=== PATIENT | male | born 1945 | race Caucasian/White ===

== ENCOUNTER 2018-08-05 20:50 | Emergency (ER) | payer MEDICARE, BC ==
--- OUTSIDE RECORDS SUMMARY | 2018-08-05 21:25 | XMS REPORT | Continuity of Care Document ---
:1945 External Reference #:[id number] Author Name Dave Anaya M.D. Address [address] [facility] [address] [place] [address] Care Team Providers Name Role Phone HCP given Primary Care Physician Unavailable Payers Date Identification Numbers Payment Provider Subscriber Effective: 2017 Policy Number: [id number] [employer] Mason Betancourt PayID: [id number] [address] [place] [address] Effective: 2014 Policy Number: [id number] [employer]/Ppo/Hmo/Pos Mason Betancourt PayID: [id number] [address] [address] [place] [address] Advance Directives Description No Information Available Problems Active Problems Provider Date Essential hypertension Dave Anaya M.D. Onset: 01/08/2017 Pure hypercholesterolemia Dave Anaya M.D. Onset: 01/08/2017 Neuropathy due to type 2 diabetes mellitus Dave Anaya M.D. 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, as adjunct through spring 2017; unsure if will work beyond that) Tobacco Use Start: Unknown End: Patient is a former Unknown smoker Smoking Status Reviewed: 12/04/17 Patient is a former smoker Exercise 01/12/2016 Exercises regularly Type/Frequency Smoke Alarms Yes smoke alarm Allergies, Adverse Reactions, Alerts Description No Known Drug Allergies Medications Active Medications SIG Qnty Indications Ordering Date Provider Esomeprazole 1 capsule daily if K21.9 Unknown 07/26/2018 Magnesium needed for acid 20mg reflux Capsules Vitamin B12 take 1 sublingual Silcoff, 03/24/2017 1000mcg tablet daily Frandy Acosta Tablets ER Metoprolol Succinate 1/2 tablet by mouth 45tabs I10 Silcoff, 02/13/2017 ER every day Frandy Acosta 25mg Tablets ER 24HR Atorvastatin Calcium Take 1 Tablet By 90tabs E78.00 Héctor, 01/08/2017 Mouth Every Day To Frandy Acosta 40mg Tablets Lower Cholesterol And Reduce Risk Of Heart Disease Flomax take one capsule by Unknown 01/06/2017 Capsules mouth at bedtime Aspirin Children's 1 qam 90units R07.9 Maryanaco, 12/03/2016 Frandy Acosta 81mg Chewtabs Ibuprofen taking 2 tab to 4 Unknown 01/11/2016 200mg tab with a snack Tablets for your pain as needed History Medications Esomeprazole 1 every morning 60caps K21.9 Maryanaco, 03/25/2017 - Magnesium before eating, if Frandy Acosta 12/30/2017 20mg Capsules no relief in gerd DR maurer after several days, increase to 2 every morning Nitroglycerin apply 1 patch Unknown 03/24/2017 - 0.2mg/HR apply every 11/13/2017 Patches 24HR morning & remove every evening, sooner if causing Santana Atenolol 1 by mouth every 90tabs Kelsey Guerrero, 01/07/2017 - 25mg Tablets day P.A. 01/08/2017 Atenolol take 1/2 tablet by I10 Unknown 01/07/2017 - 50mg Tablets mouth every 02/13/2017 morning for high blood pressure Metoprolol Tartrate 1 tab po qd 90tabs Héctor, 12/26/2016 - Frandy Acosta 01/08/2017 25mg Tablets Omeprazole 1 tab 20 minutes 90caps R07.9 Maryanacosher, 12/03/2016 - 20mg prior to breakfast Frandy Acosta 03/25/[address] for control of gerd sxs Telmisartan take one tablet by 30tabs I10 Silcoff, 10/14/2016 - 40mg mouth once daily Frandy Acosta 11/24/2016 Tablets for high blood pressure Losartan Potassium take 1 tablet 90tabs I10 Silcosher, 08/23/2016 - daily for high Frandy Acosta 10/14/2016 100mg Tablets blood pressure Vitamin B-12 2 by mouth every D51.9 Silcoff, 07/26/2016 - 500mcg day (for vitamin Frandy Acosta 03/24/2017 Tablets B12 eficiency) Atorvastatin Calcium 1 by mouth every 90tabs E78.00 Silcoff, 07/23/2016 - day to lower Frandy Acosta 11/24/2016 40mg Tablets cholesterol and reduce risk of heart disease Losartan Potassium take one tablet by 90tabs I10 Silcosher, 07/23/2016 - 50mg mouth every Frandy Acosta 08/23/2016 Tablets morning for high blood pressure Sulfamethoxazole/Trim 1 by mouth twice a 30tabs Unknown 07/09/2016 - ethoprim DS day 07/24/2016 800-160mg Tablets Atenolol 1 tablet by mouth 45tabs I10 Silco, 01/11/2016 - 25mg Tablets every day for high Frandy Acosta 12/26/2016 blood pressure Tamsulosin HCL 1 by mouth every 90caps Unknown 01/11/2016 - 0.4mg day 11/24/2016 Capsules Aleve as needed Unknown 01/11/2016 - 220mg Tablets 10/16/2017 Finasteride 1 tab by mouth Unknown - 5mg Tablets every day for BPH 12/03/2017 Immunizations CPT Code Status Date Vaccine Lot # [id number] Given 01/06/2018 Influenza Vaccine Split Virus Preservative Free Im Use 71308 Given 08/11/2017 Shingrix Zoster (Shingles) Vaccine (HZV) [id number] Recomb,Subnit,Adjuvanted 23861 Given 01/08/2017 Td Immunization [id number] U-Flu Given 01/01/2017 Influenza,Unspecified 11464 Given 08/23/2016 Pneumococcal Immunization [id number] 00625 Given 10/05/2014 Prevnar 13 74862 Given 08/13/2013 Zostavax 98753 Given 10/15/2006 Adacel or Boostrix, TDaP Vital Signs Date Vital Result Comment 07/27/2018 9:11am BP Systolic 142 mmHg BP Diastolic 90 mmHg BP Systolic Recheck 164 mmHg R arm sitting BP Diastolic Recheck 86 mmHg R arm sitting Height 71.25 inches 5'11.25" Weight 201.00 lb BMI (Body Mass Index) 27.8 kg/m2 01/31/2018 9:00am BP Systolic 122 mmHg per pt (home reading) BP Diastolic 72 mmHg per pt (home reading) 01/30/2018 8:57am BP Systolic 162 mmHg BP Diastolic 80 mmHg Weight 197.00 lb 12/04/2017 2:06pm BP Systolic 154 mmHg BP Diastolic 82 mmHg BP Systolic Recheck 140 mmHg BP Diastolic Recheck 82 mmHg Heart Rate 81 /min Height 71 inches 5'11" Weight 195.00 lb BMI (Body Mass Index) 27.2 kg/m2 10/16/2017 8:30am BP Systolic 160 mmHg BP Diastolic 80 mmHg BP Systolic Recheck 160 mmHg BP recheck 148/90 BP Diastolic Recheck 80 mmHg BP recheck 148/90 Heart Rate 60 /min Height 71.5 inches 5'11.50" Weight 196.00 lb BMI (Body Mass Index) 27.0 kg/m2 08/11/2017 12:48pm BP Systolic 168 mmHg BP Diastolic 80 mmHg Height 70.75 inches 5'10.75" Weight 195.00 lb BMI (Body Mass Index) 27.4 kg/m2 03/25/2017 1:20pm BP Systolic 168 mmHg BP Diastolic 90 mmHg Heart Rate 71 /min O2 % BldC Oximetry 97 % Body Temperature 98.1 F Weight 190.00 lb 01/08/2017 8:28am BP Systolic 166 mmHg BP Diastolic 80 mmHg Height 71.5 inches 5'11.50" Weight 194.00 lb BMI (Body Mass Index) 26.7 kg/m2 12/03/2016 8:47am BP Systolic 152 mmHg BP Diastolic 84 mmHg BP Systolic Recheck 140 mmHg BP Diastolic Recheck 70 mmHg Heart Rate 74 /min O2 % BldC Oximetry 97 % 11/25/2016 9:20am BP Systolic 154 mmHg BP Diastolic 76 mmHg BP Systolic Recheck 140 mmHg Pulse: 75- Left arm standing BP Diastolic Recheck 78 mmHg Pulse: 75- Left arm standing Weight 197.00 lb BP Systolic Sitting Left Arm 146 mmHg Pulse: 74 BP Diastolic Sitting Left Arm 82 mmHg Pulse: 74 BP Systolic Lying Down Resting Right Arm 132 mmHg Pulse: 65 BP Diastolic Lying Down Resting Right Arm 80 mmHg Pulse: 65 09/25/2016 8:34am BP Systolic 134 mmHg BP Diastolic 64 mmHg BP Systolic Recheck 130 mmHg R arm sitting BP Diastolic Recheck 72 mmHg R arm sitting Heart Rate 60 /min reg Weight 207.00 lb 08/23/2016 9:58am BP Systolic 158 mmHg BP Diastolic 76 mmHg BP Systolic Recheck 174 mmHg ours; 172/88 his BP Diastolic Recheck 80 mmHg ours; 172/88 his Heart Rate 64 /min reg Weight 206.00 lb 07/23/2016 8:57am BP Systolic 148 mmHg R arm, sitting, RN BP Diastolic 80 mmHg R arm, sitting, RN BP Systolic Recheck 138 mmHg pt's machine R arm BP Diastolic Recheck 76 mmHg pt's machine R arm Height 71 inches 5'11" Weight 207.00 lb BMI (Body Mass Index) 28.9 kg/m2 01/12/2016 9:46am BP Systolic 150 mmHg per pt white coat synd BP Diastolic 80 mmHg per pt white coat synd BP Systolic Recheck 140 mmHg R arm sitting BP Diastolic Recheck 70 mmHg R arm sitting Heart Rate 60 /min reg Height 71 inches 5'11" Weight 206.00 lb BMI (Body Mass Index) 28.7 kg/m2 Results Test Date Facility Test Result H/L Range Note Laboratory test 07/27/2018 In House Hemoglobin A1c 5.9 finding Laboratory test 04/03/2018 [facility] PSA Diagnostic 3.853 ng/mL 0- 4.0 1 finding [phone] Urine Microalbumin 01/30/2018 [facility] Ur Microalbumin < 15.0 2 Random [phone] (mg/L) Urine Creatinine 169.17 mg/dL Urine Microalbumin/Creatinine TNP <31 3 Lipid Profile (Trig/Chol/HDL) 01/30/2018 [facility] Triglycerides 125 mg/dL 4 [phone] Cholesterol 101 mg/dL 5 HDL Cholesterol 49.1 mg/dL 6 LDL Cholesterol 27 mg/dL 7 CBC Auto Diff 12/04/2017 [facility] White Blood Count 8.6 10^3/uL N 3.5-10.8 [phone] Red Blood Count 5.05 10^6/uL N 4.00-5.40 Hemoglobin 14.9 g/dL N 14.0-18.0 Hematocrit 43 % N 42-52 Mean Corpuscular Volume 86 fL N 80-94 Mean Corpuscular Hemoglobin 30 pg N 27-31 Mean Corpuscular HGB Conc 34 g/dL N 31-36 Red Cell Distribution Width 14 % N 10.5-15 Platelet Count 199 10^3/uL N 150-450 Mean Platelet Volume 7.8 um3 N 7.4-10.4 Abs Neutrophils 6.3 10^3/uL N 1.5-7.7 Abs Lymphocytes 1.6 10^3/uL N 1.0-4.8 Abs Monocytes 0.6 10^3/uL N 0-0.8 Abs Eosinophils 0.1 10^3/uL N 0-0.6 Abs Basophils 0 10^3/uL N 0-0.2 Abs Nucleated RBC 0.1 10^3/uL Granulocyte % 72.9 % N 38-83 Lymphocyte % 18.0 % Low 25-47 Monocyte % 7.2 % High 0-7 Eosinophil % 1.4 % N 0-6 Basophil % 0.5 % N 0-2 Nucleated Red Blood Cells % 0.8 Inr/Protime 12/04/2017 [facility] Inr 0.89 N 0.77-1.02 [phone] Comp Metabolic Panel 12/04/2017 [facility] Sodium 142 mmol/L N 135- 145 [phone] Potassium 4.6 mmol/L N 3.5-5.0 Chloride 109 mmol/L N 101-111 Co2 Carbon Dioxide 25 mmol/L N 22-32 Anion Gap 8 mmol/L N 2-11 Glucose 104 mg/dL High 70-100 Blood Urea Nitrogen 22 mg/dL N 6-24 Creatinine 1.23 mg/dL High 0.67-1.17 BUN/Creatinine Ratio 17.9 N 8-20 Calcium 9.6 mg/dL N 8.6-10.3 Total Protein 6.6 g/dL N 6.4-8.9 Albumin 4.5 g/dL N 3.2-5.2 Globulin 2.1 g/dL N 2-4 Albumin/Globulin Ratio 2.1 N 1-3 Total Bilirubin 0.60 mg/dL N 0.2-1.0 Alkaline Phosphatase 72 U/L N 34-104 Alt 26 U/L N 7-52 Ast 21 U/L N 13-39 Egfr Non- 57.5 >60 Egfr 69.6 >60 8 Urinalysis Profile 12/04/2017 [facility] Urine Color Yellow [phone] Urine Appearance Clear Urine Specific Calvin 1.027 N 1.010-1.030 Urine pH 5.0 N 5-9 Urine Urobilinogen Negative Negative Urine Ketones Negative Negative Urine Protein Negative Negative Urine Leukocytes Negative Negative Urine Blood Negative Negative Urine Nitrite Negative Negative Urine Bilirubin Negative Negative Urine Glucose Negative Negative Laboratory test 12/04/2017 [facility] Hemoglobin A1c 6.0 % High 4.0- 5.6 9 finding [phone] (Glyco HGB) Laboratory test 08/11/2017 In House Hemoglobin A1c 6.0 finding Urine Micro Inhouse 08/11/2017 In House Ua WBC - 10 Ua RBC - Ua Casts - Ua Epi - Ua Other - Ua Glucose - Ua Bilirubin - Ua Ketones - Ua Specific Calvin 1.005 Ua Blood - Ua PH 6.0 Ua Protein - Ua Urobilinogen - Ua Nitrite - Ua Leukocytes - Laboratory test 07/07/2017 [facility] PSA Screening 4.391 High 0-4.0 11 finding [phone]/mL Laboratory test 06/24/2017 [facility] Surgical SEE RESULT 12 finding [phone] Interface Order BELOW Testosterone 04/01/2017 [facility] Free 5.18 ng/dL 3.28-12.2 13 Free & Total [phone] Testosterone ng/dl Testosterone 225 ng/dL Abnormal 240-950 14 Laboratory test 03/20/2017 [facility] Creatine Kinase(CK) 90 U/L N 10 -223 finding [phone] Lipid Profile 03/20/2017 [facility] Triglycerides 103 mg/dL 15 (Trig/Chol/HDL) [phone] Cholesterol 91 mg/dL 16 HDL Cholesterol 42.6 mg/dL 17 LDL Cholesterol 28 mg/dL 18 Comp Metabolic Panel 03/20/2017 [facility] Sodium 139 mmol/L N 133- 145 [phone] Potassium 4.4 mmol/L N 3.5-5.0 Chloride 104 mmol/L N 101-111 Co2 Carbon Dioxide 30 mmol/L N 22-32 Anion Gap 5 mmol/L N 2-11 Glucose 135 mg/dL High 70-100 Blood Urea Nitrogen 20 mg/dL N 6-24 Creatinine 1.08 mg/dL N 0.67-1.17 BUN/Creatinine Ratio 18.5 N 8-20 Calcium 9.4 mg/dL N 8.6-10.3 Total Protein 6.8 g/dL N 6.4-8.9 Albumin 4.3 g/dL N 3.2-5.2 Globulin 2.5 g/dL N 2-4 Albumin/Globulin Ratio 1.7 N 1-3 Total Bilirubin 0.70 mg/dL N 0.2-1.0 Alkaline Phosphatase 58 U/L N 34-104 Alt 18 U/L N 7-52 Ast 16 U/L N 13-39 Egfr Non- 67.0 >60 Egfr 86.2 >60 19 Laboratory test 02/26/2017 [facility] PSA Screening 4.532 ng/mL High 0-4.0 20 finding [phone] Laboratory test 01/16/2017 [facility] Inr/Protime 0.94 N 0.89-1.11 finding [phone] Partial Thrombo Time PTT 31.2 seconds N 26.0-36.3 CBC Auto Diff 01/16/2017 [facility] White Blood Count 7.5 10^3/uL N 3.5-10.8 [phone] Red Blood Count 4.91 10^6/uL N 4.0-5.4 Hemoglobin 14.5 g/dL N 14.0-18.0 Hematocrit 42 % N 42-52 Mean Corpuscular Volume 86 fL N 80-94 Mean Corpuscular Hemoglobin 30 pg N 27-31 Mean Corpuscular HGB Conc 35 g/dL N 31-36 Red Cell Distribution Width 15 % N 10.5-15 Platelet Count 198 10^3/uL N 150-450 Mean Platelet Volume 7 um3 Low 7.4-10.4 Abs Neutrophils 4.7 10^3/uL N 1.5-7.7 Abs Lymphocytes 2.1 10^3/uL N 1.0-4.8 Abs Monocytes 0.5 10^3/uL N 0-0.8 Abs Eosinophils 0.1 10^3/uL N 0-0.6 Abs Basophils 0 10^3/uL N 0-0.2 Abs Nucleated RBC 0 10^3/uL N Granulocyte % 62.3 % N 38-83 Lymphocyte % 28.7 % N 25-47 Monocyte % 7.1 % N 1-9 Eosinophil % 1.3 % N 0-6 Basophil % 0.6 % N 0-2 Nucleated Red Blood Cells % 0 N Comp Metabolic Panel 01/16/2017 [facility] Sodium 139 mmol/L N 133- 145 [phone] Potassium 4.3 mmol/L N 3.5-5.0 Chloride 105 mmol/L N 101-111 Co2 Carbon Dioxide 27 mmol/L N 22-32 Anion Gap 7 mmol/L N 2-11 Glucose 98 mg/dL N 70-100 Blood Urea Nitrogen 19 mg/dL N 6-24 Creatinine 1.14 mg/dL N 0.67-1.17 BUN/Creatinine Ratio 16.7 N 8-20 Calcium 9.3 mg/dL N 8.6-10.3 Total Protein 6.8 g/dL N 6.4-8.9 Albumin 4.3 g/dL N 3.2-5.2 Globulin 2.5 g/dL N 2-4 Albumin/Globulin Ratio 1.7 N 1-3 Total Bilirubin 0.60 mg/dL N 0.2-1.0 Alkaline Phosphatase 46 U/L N 34-104 Alt 14 U/L N 7-52 Ast 14 U/L N 13-39 Egfr Non- 63.0 N >60 Egfr 81.0 N >60 21 Lipid Profile 01/16/2017 [facility] Triglycerides 170 mg/dL N 22 (Trig/Chol/HDL) [phone] Cholesterol 159 mg/dL N 23 HDL Cholesterol 41.5 mg/dL N 24 LDL Cholesterol 84 mg/dL N 25 Laboratory test 01/16/2017 [facility] Creatine Kinase(CK) 78 U/L N 10 -223 finding [phone] TSH (Thyroid Stim Horm) 3.66 mcIU/mL N 0.34-5.60 Laboratory test finding 01/08/2017 In House Hemoglobin A1c 5.9 Laboratory test finding 01/01/2017 [facility] Alt 17 U/L N 7-52 26 [phone] Lipid Profile 01/01/2017 [facility] Triglycerides 139 mg/dL N 27 (Trig/Chol/HDL) [phone] Cholesterol 157 mg/dL N 28 HDL Cholesterol 40.2 mg/dL N 29 LDL Cholesterol 89 mg/dL N 30 Basic Metabolic Panel 01/01/2017 [facility] Sodium 139 mmol/L N 133- 145 [phone] Potassium 4.5 mmol/L N 3.5-5.0 Chloride 104 mmol/L N 101-111 Co2 Carbon Dioxide 29 mmol/L N 22-32 Anion Gap 6 mmol/L N 2-11 Glucose 138 mg/dL High 70-100 Blood Urea Nitrogen 21 mg/dL N 6-24 Creatinine 1.14 mg/dL N 0.67-1.17 BUN/Creatinine Ratio 18.4 N 8-20 Calcium 9.0 mg/dL N 8.6-10.3 Egfr Non- 63.0 N >60 Egfr 81.0 N >60 31 Laboratory test 08/23/2016 In House Hemoglobin A1c 6.1 finding Basic Metabolic Panel 08/15/2016 [facility] Sodium 139 mmol/L N 133- 145 [phone] Potassium 4.7 mmol/L N 3.5-5.0 Chloride 105 mmol/L N 101-111 Co2 Carbon Dioxide 26 mmol/L N 22-32 Anion Gap 8 mmol/L N 2-11 Glucose 131 mg/dL High 70-100 Blood Urea Nitrogen 19 mg/dL N 6-24 Creatinine 1.29 mg/dL High 0.67-1.17 BUN/Creatinine Ratio 14.7 N 8-20 Calcium 9.9 mg/dL N 8.6-10.3 Egfr Non- 54.6 N >60 Egfr 70.2 N >60 32 Urine Microalbumin 08/15/2016 [facility] Urine Creatinine 195.27 mg/dL N Random [phone] Ur Microalbumin (mg/L) < 15.0 mg/L N Urine Microalbumin/Creatinine TNP ug/mg N <31 33 Laboratory test 08/15/2016 [facility] PSA Screening 3.768 ng/mL N 0- 4.0 34 finding [phone] Basic Metabolic 01/12/2016 [facility] Sodium 138 mmol/L N 133-145 Panel [phone] Potassium 4.6 mmol/L N 3.5-5.0 Chloride 104 mmol/L N 101-111 Co2 Carbon Dioxide 26 mmol/L N 22-32 Anion Gap 8 mmol/L N 2-11 Glucose 131 mg/dL High 70-100 Blood Urea Nitrogen 19 mg/dL N 6-24 Creatinine 1.14 mg/dL N 0.67-1.17 BUN/Creatinine Ratio 16.7 N 8-20 Calcium 9.4 mg/dL N 8.6-10.3 Egfr Non- 63.1 N >60 Egfr 81.2 N >60 35 Laboratory test finding 01/12/2016 In House Hemoglobin A1c 5.8 Protein Electrophoresis 01/12/2016 [facility] Total 7.2 g/dL N 6.3 - [phone] Protein(Pep) 7.9 Albumin 3.7 g/dL N 3.4-4.7 Alpha-1 Globulin 0.2 g/dL N 0.1-0.3 Alpha-2 Globulin 1.0 g/dL N 0.6-1.0 Beta Globulin 1.2 g/dL N 0.7-1.2 Gamma Globulin 1.1 g/dL N 0.6-1.6 Albumin/Globulin Ratio 1.04 N Impression See Comment N 36 Heavy Metal Blool 01/12/2016 [facility] Arsenic <1 ng/mL N 37 [phone] Lead 1.0 mcg/dL N 38 Mercury 2 ng/mL N 39 Cadmium <0.2 ng/mL N [address] [facility] [address] [facility] [address] [facility] [place] [address] [address] [facility] N Guardian First Name MASON Taylor N Guardian Last Name ASIA N N Venous/Capillary Heavy Metals Venous N Patient Race WHITE N RPR 01/12/2016 [facility] Syphillis Igg Nonreactive N Nonreactive 42 [phone] W/Reflex RPR Laboratory test 01/12/2016 [facility] Vitamin B12 190 pg/mL N 180- 254 43 finding [phone] Folic Acid (Folate) > 20.00 ng/mL N >3.99 TSH (Thyroid Stim Horm) 4.27 mcIU/mL N 0.34-5.60 Lipid Profile 01/12/2016 [facility] Triglycerides 170 mg/dL N 44 (Trig/Chol/HDL) [phone] Cholesterol 187 mg/dL N 45 HDL Cholesterol 40.4 mg/dL N 46 LDL Cholesterol 113 mg/dL N 47 1 Serum levels of PSA measured using the [employer] DXI Hybritech immunoassay should not be interpreted as absolute evidence of the presence or absence of disease. The PSA value should be used in conjunction with other pertinent clinical diagnostic procedures. The values obtained with different assay methods or kits cannot be used interchangeably. 2 FASTING 12 HOUR Copy Result to: RADHA MCDONOUGH ([id number]) 3 Unable to calculate due to low microalbumin 4 Desirable: <150 Borderline High: 150-199 High: 200-499 Very High: >500 5 Desirable: <200 Borderline High: 200-239 High: >239 6 Low: <40 Desirable: 40-60 High: >60 7 Desirable: <100 Near Optimal: 100-129 Borderline High: 130-159 High: 160-189 Very High: >189 8 Because ethnic data is not always readily available, this report includes an eGFR for both -Americans and non- Americans. The National Kidney Disease Education Program (NKDEP) does not endorse the use of the MDRD equation for patients that are not between the ages of 18 and 70, are , have extremes of body size, muscle mass, or nutritional status, or are non- or non-. According to the National Kidney Foundation, irrespective of diagnosis, the stage of the disease is based on the level of kidney function: Stage Description GFR(mL/min/1.73 m(2)) 1 Kidney damage with normal or decreased GFR 90 2 Kidney damage with mild decrease in GFR 60-89 3 Moderate decrease in GFR 30-59 4 Severe decrease in GFR 15-29 5 Kidney failure <15 (or dialysis) 9 Therapeutic target for the treatment of diabetes mellitus patients is <7% HBA1C, and in selective patients <6.0%. Please refer to [employer] Diabetes Association diabetic care guidelines for further information. 10 void, clear, light yellow 11 Serum levels of PSA measured using the [employer] DXI Hybritech immunoassay should not be interpreted as absolute evidence of the presence or absence of disease. The PSA value should be used in conjunction with other pertinent clinical diagnostic procedures. The values obtained with different assay methods or kits cannot be used interchangeably. 12 SEE RESULT BELOW Name: MASON BETANCOURT : [address]: Sagar Frankel MD Acct: [id number] Unit: [id number] AGE: 72 Location: ENDO Re06/24/17 SEX: M Status: REG REF SPEC: [id number] CESAR: 06/24/17-925 [facility] DR: Sagar Frankel MD REQ: [id number] RECD: 06/24/17-1044 STATUS: JAYASHREE RAND DR: Dave Anaya MD _ ORDERED: LEVEL 4/5 FINAL DIAGNOSIS 1. Colon, descending, biopsy: -- Tubular adenoma. -- No high grade dysplasia or malignancy. 2. Colon, hepatic flexure, biopsy: -- Tubular adenoma. -- No high grade dysplasia or malignancy. 3. Colon, right, biopsy: -- Tubular adenoma. -- No high grade dysplasia or malignancy. 4. Colon, mid right, biopsy: -- Hyperplastic polyp. 5. Colon, distal transverse, biopsy: -- Tubular adenoma. -- No high grade dysplasia or malignancy. CLINICAL HISTORY Usual bowel habit ? every other day with no blood; no anemia POST-OPERATIVE DIAGNOSIS Colonoscopy to cecum, prep fair ? easy but loopy. Raphael-diverticulosis; five polyps CONTINUED ON NEXT PAGE DEPARTMENT OF PATHOLOGY, [address] [place] [address] Garth Fu M.D. Director [facility] # [id number] RUN DATE: 06/25/17 [facility] LAB LIVE PAGE 2 Patient: MASON BETANCOURT [id number] (Continued) GROSS DESCRIPTION (Continued) GROSS DESCRIPTION 1. The specimen is received in formalin labeled, Descending Colon Polyp, and consists of a 0.9 x 0.4 x 0.3 cm mitchell-red polypoid soft tissue fragment which is inked, trisected and submitted entirely in one cassette. 2. The specimen is received in formalin labeled, Hepatic Flexure Colon Polyp, and consists of a 0.7 x 0.6 x 0.2 cm aggregate of mitchell-pink irregular to polypoid soft tissue fragments which is submitted entirely in one cassette. 3. The specimen is received in formalin labeled, Right Colon Polyp, and consists of a 0.6 x 0.5 x 0.1 cm aggregate of mitchell-pink irregular to polypoid soft tissue fragments which is submitted entirely in one cassette. 4. The specimen is received in formalin labeled, Biopsy Mid Right Colon Polyp, and consists of a 0.5 x 0.3 x 0.2 cm mitchell-pink polypoid soft tissue fragment which is submitted entirely in one cassette. 5. The specimen is received in formalin labeled, Distal Transverse Colon Polyp, and consists of two mitchell-pink irregular to polypoid soft tissue fragments measuring 0.3 x 0.2 x 0.1 cm and 0.4 x 0.2 x 0.2 cm, which are submitted entirely in one cassette. Signed (signature on file) Laura Seaman MD [id number] END OF REPORT DEPARTMENT OF PATHOLOGY, [address] [place] [address] Garth Fu M.D. Director [facility] # [id number] 13 ADDITIONAL INFORMATION Testing performed by [facility]. This test was developed and its performance characteristics determined by [facility] in a manner consistent with CLIA requirements. This test has not been cleared or approved by the U.S. Food and Drug Administration. 14 ADDITIONAL INFORMATION Testing performed by Liquid Chromatography-Tandem Mass Spectrometry (LC-MS/MS). This test was developed and its performance characteristics determined by [facility] in a manner consistent with CLIA requirements. This test has not been cleared or approved by the U.S. Food and Drug Administration. Test Performed by: [facility] [address] [place] [id number] 15 Desirable: <150 Borderline High: 150-199 High: 200-499 Very High: >500 16 Desirable: <200 Borderline High: 200-239 High: >239 17 Low: <40 Desirable: 40-60 High: >60 18 Desirable: <100 Near Optimal: 100-129 Borderline High: 130-159 High: 160-189 Very High: >189 19 Because ethnic data is not always readily available, this report includes an eGFR for both -Americans and non- Americans. The National Kidney Disease Education Program (NKDEP) does not endorse the use of the MDRD equation for patients that are not between the ages of 18 and 70, are , have extremes of body size, muscle mass, or nutritional status, or are non- or non-. According to the National Kidney Foundation, irrespective of diagnosis, the stage of the disease is based on the level of kidney function: Stage Description GFR(mL/min/1.73 m(2)) 1 Kidney damage with normal or decreased GFR 90 2 Kidney damage with mild decrease in GFR 60-89 3 Moderate decrease in GFR 30-59 4 Severe decrease in GFR 15-29 5 Kidney failure <15 (or dialysis) 20 Serum levels of PSA measured using the [employer] DXI Hybritech immunoassay should not be interpreted as absolute evidence of the presence or absence of disease. The PSA value should be used in conjunction with other pertinent clinical diagnostic procedures. The values obtained with different assay methods or kits cannot be used interchangeably. 21 Because ethnic data is not always readily available, this report includes an eGFR for both -Americans and non- Americans. The National Kidney Disease Education Program (NKDEP) does not endorse the use of the MDRD equation for patients that are not between the ages of 18 and 70, are , have extremes of body size, muscle mass, or nutritional status, or are non- or non-. According to the National Kidney Foundation, irrespective of diagnosis, the stage of the disease is based on the level of kidney function: Stage Description GFR(mL/min/1.73 m(2)) 1 Kidney damage with normal or decreased GFR 90 2 Kidney damage with mild decrease in GFR 60-89 3 Moderate decrease in GFR 30-59 4 Severe decrease in GFR 15-29 5 Kidney failure <15 (or dialysis) 22 Desirable: <150 Borderline High: 150-199 High: 200-499 Very High: >500 23 Desirable: <200 Borderline High: 200-239 High: >239 24 Low: <40 Desirable: 40-60 High: >60 25 Desirable: <100 Near Optimal: 100-129 Borderline High: 130-159 High: 160-189 Very High: >189 26 FASTING 12 HOUR 27 Desirable <150 Borderline high 150-199 High 200-499 Very High >500 28 Desirable <200 Borderline high 200-239 High >239 29 Low <40 Desirable: 40-60 High: >60 30 Desirable: <100 mg/dL Near Optimal: 100-129 mg/dL Borderline High: 130-159 mg/dL High: 160-189 mg/dL Very High: >189 mg/dL 31 Because ethnic data is not always readily available, this report includes an eGFR for both -Americans and non- Americans. The National Kidney Disease Education Program (NKDEP) does not endorse the use of the MDRD equation for patients that are not between the ages of 18 and 70, are , have extremes of body size, muscle mass, or nutritional status, or are non- or non-. According to the National Kidney Foundation, irrespective of diagnosis, the stage of the disease is based on the level of kidney function: Stage Description GFR(mL/min/1.73 m(2)) 1 Kidney damage with normal or decreased GFR 90 2 Kidney damage with mild decrease in GFR 60-89 3 Moderate decrease in GFR 30-59 4 Severe decrease in GFR 15-29 5 Kidney failure <15 (or dialysis) 32 Because ethnic data is not always readily available, this report includes an eGFR for both -Americans and non- Americans. The National Kidney Disease Education Program (NKDEP) does not endorse the use of the MDRD equation for patients that are not between the ages of 18 and 70, are , have extremes of body size, muscle mass, or nutritional status, or are non- or non-. According to the National Kidney Foundation, irrespective of diagnosis, the stage of the disease is based on the level of kidney function: Stage Description GFR(mL/min/1.73 m(2)) 1 Kidney damage with normal or decreased GFR 90 2 Kidney damage with mild decrease in GFR 60-89 3 Moderate decrease in GFR 30-59 4 Severe decrease in GFR 15-29 5 Kidney failure <15 (or dialysis) 33 Unable to calculate due to low microalbumin 34 Serum levels of PSA measured using the [employer] DXI Hybritech immunoassay should not be interpreted as absolute evidence of the presence or absence of disease. The PSA value should be used in conjunction with other pertinent clinical diagnostic procedures. The values obtained with different assay methods or kits cannot be used interchangeably. 35 Because ethnic data is not always readily available, this report includes an eGFR for both -Americans and non- Americans. The National Kidney Disease Education Program (NKDEP) does not endorse the use of the MDRD equation for patients that are not between the ages of 18 and 70, are , have extremes of body size, muscle mass, or nutritional status, or are non- or non-. According to the National Kidney Foundation, irrespective of diagnosis, the stage of the disease is based on the level of kidney function: Stage Description GFR(mL/min/1.73 m(2)) 1 Kidney damage with normal or decreased GFR 90 2 Kidney damage with mild decrease in GFR 60-89 3 Moderate decrease in GFR 30-59 4 Severe decrease in GFR 15-29 5 Kidney failure <15 (or dialysis) 36 RESULT: No apparent monoclonal protein on serum electrophoresis. Test Performed by: [place] [address] Locker Attendant: Denilson Scruggs II, M.D., Ph.D. 37 Reference Value: 0-12 ADDITIONAL INFORMATION This test was developed and its performance characteristics determined by [facility] in a manner consistent with CLIA requirements. This test has not been cleared or approved by the U.S. Food and Drug Administration. 38 Reference Value: 0.0-4.9 ADDITIONAL INFORMATION Testing performed by Inductively Coupled Plasma-Mass Spectrometry (ICP-MS). This test was developed and its performance characteristics determined by [facility] in a manner consistent with CLIA requirements. This test has not been cleared or approved by the U.S. Food and Drug Administration. 39 Reference Value: 0-9 ADDITIONAL INFORMATION This test was developed and its performance characteristics determined by [facility] in a manner consistent with CLIA requirements. This test has not been cleared or approved by the U.S. Food and Drug Administration. 40 Reference Value: 0.0-4.9 ADDITIONAL INFORMATION This test was developed and its performance characteristics determined by [facility] in a manner consistent with CLIA requirements. This test has not been cleared or approved by the U.S. Food and Drug Administration. 41 170 [facility] 42 Warning: A positive result is not useful for establishing a diagnosis of syphilis. In most situations, such a result may reflect a prior treated infection; a negative result can exclude a diagnosis of syphilis except for incubating or early primary disease. 43 Normal Range 180 to 914 Indeterminate Range 145 to 180 Deficient Range <145 44 Desirable <150 Borderline high 150-199 High 200-499 Very High >500 45 Desirable <200 Borderline high 200-239 High >239 46 Low <40 Desirable: 40-60 High: >60 47 Desirable: <100 mg/dL Near Optimal: 100-129 mg/dL Borderline High: 130-159 mg/dL High: 160-189 mg/dL Very High: >189 mg/dL Procedures Date Code Description Status 07/27/2018 85361 Control Nosebleed Anterior Simple Completed 12/04/2017 70496 Electrocardiogram Complete Completed 06/24/2017 [id number] Colonoscopy Completed 12/03/2016 77501 Electrocardiogram Complete Completed 07/23/2016 74907 Electrocardiogram Complete Completed 02/29/2016 [id number] Diabetic Retinal Eye Exam Completed 01/12/2016 [id number] Diabetic Foot Exam Completed Encounters Type Date Location Provider Dx Diagnosis Office Visit 01/30/2018 Main Office Dave Anaya, E11.40 Type 2 diabetes 8:55a M.D. mellitus with diabetic neuropathy, unsp I25.10 Athscl heart disease of [place] coronary artery w/o ang pctrs I10 Essential (primary) hypertension K21.9 Gastro-esophageal reflux disease without esophagitis M54.5 Low back pain Office Visit 12/04/2017 1:55p Main Office Chitra Brar, Z01.818 Encounter for other PA preprocedural examination H25.89 Other age-related cataract E11.40 Type 2 diabetes mellitus with diabetic neuropathy, unsp I25.10 Athscl heart disease of [place] coronary artery w/o ang pctrs I10 Essential (primary) hypertension Office Visit 10/16/2017 8:00a Main Office Kelsey Guerrero, Z01.818 Encounter for other P.A. preprocedural examination I10 Essential (primary) hypertension Office Visit 08/11/2017 12:55p Main Office Dave Anaya, E11.40 Type 2 diabetes M.D. 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 hypertension I25.9 Chronic ischemic heart disease, unspecified R05 Cough K21.9 Gastro-esophageal reflux disease without esophagitis F41.9 Anxiety disorder, unspecified I25.10 Athscl heart disease of [place] coronary artery w/o ang pctrs R53.83 Other fatigue Office Visit 01/08/2017 8:30a Main Office Dave Anaya, I10 Essential (primary) M.D. hypertension E78.00 Pure hypercholesterolemia, unspecified E11.40 Type 2 diabetes mellitus with diabetic neuropathy, unsp R07.9 Chest pain, unspecified K21.9 Gastro-esophageal reflux disease without esophagitis R68.83 Chills (without fever) Z23 Encounter for immunization Z41.8 Encntr for oth proc for purpose oth than [facility] Office Visit 12/03/2016 8:20a Main Office Kelsey Daisy, R07.9 Chest pain , P.A. unspecified I10 Essential (primary) hypertension R94.31 Abnormal electrocardiogram [ECG] [EKG] Office Visit 11/25/2016 9:20a Main Office Kelsey Guerrero, R42 Dizziness and P.A. giddiness I10 Essential (primary) hypertension E78.00 Pure hypercholesterolemia, unspecified H69.91 Unspecified Eustachian tube disorder, right ear Office Visit 09/25/2016 8:30a Main Office Dave Anaya I10 Essential (primary) M.DVilma hypertension E78.00 Pure hypercholesterolemia, unspecified Office Visit 08/23/2016 9:30a Main Office Dave Anaya I10 Essential (primary) M.DVilma hypertension E11.40 Type 2 diabetes mellitus with diabetic neuropathy, unsp R68.83 Chills (without fever) Z23 Encounter for immunization Z41.8 Encntr for oth proc for purpose oth [facility] Office Visit 07/23/2016 8:45a Main Office Dave Anaya I10 Essential (primary) M.DVilma hypertension E11.40 Type 2 diabetes mellitus with diabetic neuropathy, unsp E78.00 Pure hypercholesterolemia, unspecified R35.0 Frequency of micturition R68.83 Chills (without fever) R97.20 Elevated prostate specific antigen [PSA] D51.9 Vitamin B12 deficiency anemia, unspecified Office Visit 01/12/2016 9:45a Main Office Dave Anaya I10 Essential (primary) M.D. hypertension R73.9 Hyperglycemia, unspecified G62.9 Polyneuropathy, unspecified R20.9 Unspecified disturbances of skin sensation E78.1 Pure hyperglyceridemia E78.00 Pure hypercholesterolemia, unspecified Plan of Treatment 12/04/2017 - Chitra Brar [id number] Encounter for other preprocedural examinationComments:Patient is at average risk for surgery, and is cleared for planned low risk procedure without additional cardiac testing based on ACC/AHA guidelines, provided lab results are within normal limits.Patient has no prior anesthetic related complications.He was advised to inform the surgeon of any acute illness which may occur between now and surgical date. This consultation has been faxed to the referring physician.Studies ordered in Office:EKG - Sinus bradycardia. Vent rate 58, Leilani 166, QRSd 93, QT/QTc 392/388, P-R-T axes 55/43/ 42. EKG compared with study from 12/03/16--no significant change.Labs - CBC, INR, UA, CMP, A1C drawn in office today. Results pending, will be copied to surgeon.H25.89 Other age-related cataractComments:Surgery to be done on left eye as kvuykH00.40 Type 2 diabetes mellitus with diabetic neuropathy, unspecifiedComments:Well controlled, last A1C (07/2017) was good at 6.0--will repeat A1C today.I25.10 Atherosclerotic heart disease of [place] coronary artery without angina pectorisComments:Managed by cardiology.I10 Essential (primary) hypertensionComments:Decent control on current meds, continue same and monitor. Home readings are better than in office.
--- NOTE | 2018-08-05 23:58 | ED ---
Throat Pain/Nasal Congestion - HPI Summary HPI Summary: A 73 y/o male presents to [facility] with a chief complaint of epistaxis since 22:00 today. He claims that he was bleeding from the right side. He claims that he has a Hx of epistaxis and 3 days ago he saw his PCP for cauterization. He also reports having a nosebleed yesterday morning when he woke up with his nose pushed into his pillow. He takes 12.5 mg Metoprolol in the morning. He uses baseboard heat and does not have a humidifier. There is no active bleeding in the ED. - History of Current Complaint Chief Complaint: EDEpistaxis Time Seen by Provider: 08/05/18 23:42 - Allergies/Home Medications Allergies/Adverse Reactions: Allergies Allergy/AdvReac Type Severity Reaction Status Date / Time No Known Allergies Allergy Verified 08/05/18 21:13 PMH/Surg Hx/FS Hx/Imm Hx Endocrine/Hematology History: Reports: Hx Diabetes - "BORDERLINE" Denies: Hx Thyroid Disease Cardiovascular History: Reports: Hx Hypertension - "BORDERLINE" Respiratory History: Denies: Hx Asthma, Hx Chronic Obstructive Pulmonary Disease (COPD) GI History: Denies: Hx Ulcer Musculoskeletal History: Denies: Hx Scoliosis Neurological History: Denies: Hx Headaches - Surgical History Surgery Procedure, Year, and Place: pilonoidal cyst Infectious Disease History: No Infectious Disease History: Denies: Hx Clostridium Difficile, Hx Hepatitis, Hx Human Immunodeficiency Virus (HIV), Hx of Known/Suspected MRSA, Hx Shingles, Hx Tuberculosis, Hx Known/ Suspected VRE, Hx Known/Suspected VRSA, History Other Infectious Disease, Traveled Outside the [place] in Last 30 Days - Family History Known Family History: Negative: Blood Disorder - Social History Alcohol Use: Occasionally Substance Use Type: Reports: None Smoking Status (MU): Former Smoker Type: Cigarettes Review of Systems Negative: Fever Positive: Epistaxis All Other Systems Reviewed And Are Negative: Yes Physical Exam - Summary Physical Exam Summary: VITAL SIGNS: Reviewed. GENERAL: Patient is a well-developed and nourished MALE who is lying comfortable in the stretcher. Patient is not in any acute respiratory distress. HEAD AND FACE: patient has increased vascularity over the right mucosa of right nares, there is no active bleeding. No signs of trauma. No ecchymosis, hematomas or skull depressions. No sinus tenderness. EYES: PERRLA, EOMI x 2, No injected conjunctiva, no nystagmus. EARS: Hearing grossly intact. Ear canals and tympanic membranes are within normal limits. MOUTH: Oropharynx within normal limits. NECK: Supple, trachea is midline, no adenopathy, no JVD, no carotid bruit, no c- spine tenderness, neck with full ROM CHEST: Symmetric, no tenderness at palpation LUNGS: Clear to auscultation bilaterally. No wheezing or crackles. CVS: Regular rate and rhythm, S1 and S2 present, no murmurs or gallops appreciated. ABDOMEN: Soft, non-tender. No signs of distention. No rebound no guarding, and no masses palpated. Bowel sounds are normal. EXTREMITIES: FROM in all major joints, no edema, no cyanosis or clubbing. NEURO: Alert and oriented x 3. No acute neurological deficits. Speech is normal and follows commands. SKIN: Dry and warm Triage Information Reviewed: Yes Vital Signs On Initial Exam: Initial Vitals Temp Pulse Resp BP Pulse Ox 98.8 F 86 16 173/93 97 08/05/18 21:05 08/05/18 21:05 08/05/18 21:05 08/05/18 21:05 08/05/18 21:05 Vital Signs Reviewed: Yes Diagnostics - Vital Signs Vital Signs Temp Pulse Resp BP Pulse Ox 08/05/18 21:05 98.8 F 86 16 173/93 97 - Laboratory Lab Statement: Any lab studies that have been ordered have been reviewed, and results considered in the medical decision making process. EENT Course/Dx - Course Course Of Treatment: A 73 y/o male presents to [facility] with a chief complaint of epistaxis since 22:00 today. He claims that he was bleeding from the right side. The physical exam revealed that the patient has increased vascularity over the right mucosa of right nares, there is no active bleeding. Pt has no active bleeding in ED. There is no intervention needed at this time. Pt will be discharged, given saline nasal spray to use and will follow up with Freddy DOUGLAS, ENT, in the morning. The patient is agreeable with this plan. - Diagnoses Provider Diagnoses: Epistaxis Discharge - Sign-Out/Discharge Documenting (check all that apply): Patient Departure - DC Patient Received Moderate/Deep Sedation with Procedure: No - Discharge Plan Condition: Stable Disposition: HOME Patient Education Materials: Nosebleed (ED) Referrals: Dave Anaya MD [Primary Care Provider] - Blu Hayes MD [Medical Doctor] - 1 Day Additional Instructions: PLEASE RETURN TO THE ED IMMEDIATELY FOR WORSENING OR CONCERNING SYMPTOMS. - Billing Disposition and Condition Condition: STABLE Disposition: Home - Attestation Statements Document Initiated by Jesusibe: Yes Documenting Scribe: Mason Maravilla Provider For Whom Gema is Documenting (Include Credential): Kristian Guerra MD Scribe Attestation: Mason Chang, scribed for Kristian Guerra MD on 08/06/18 at 0600. Scribe Documentation Reviewed: Yes Provider Attestation: The documentation as recorded by the Mason lugo accurately reflects the service I personally performed and the decisions made by Jillian beltran MD Status of Scribe Document: Viewed
[2018-08-06 01:05] VITALS: BP 139/87
[2018-08-06] MEDS ORDERED: Saline NASAL SPRAY 0.65%* BTL BOTH NARES SCH (09:00)
== END 2018-08-06 01:04 | disposition home or self-care (01) ==
LOC: ED 20:50
DX: R04.0 Epistaxis (principal); Z87.891 Personal history of nicotine dependence
CPT/HCPCS: 99282